=== PATIENT | male | born 1945 | race Caucasian/White ===

== ENCOUNTER 2018-07-24 11:37 | Emergency (ER) | payer MEDICARE, OTHER ==
[~2018-07-24] VITALS: Ht 175.3 cm; Wt 68.0 kg
[~2018-07-24 11:37] MED LIST: ALBU90OI61 INH; ALPR1 PO; Aspirin EC81 MG PO; BUDE6HFA INH; CYCL10 PO; IBUP800 PO; LISI5 PO; METPHE10 PO; Morphine Sulfat15 MG PO; Nitrostat0.4 MG SL; PARO10 PO; Percocet 10-321 EACH PO; SIMV40 PO
[2018-07-24 13:24] LABS: BASOPHILS ABSOLUTE AUTO 0.08 K/mm3 (0.00-0.23); BASOPHILS PERCENT AUTO 1 % (0-2); EOSINOPHILS ABSOLUTE AUTO 0.39 K/mm3 (0.00-0.68); EOSINOPHILS PERCENT AUTO 4 % (0-6); Hematocrit 39.5 % (37.0-53.0); Hemoglobin 12.4 g/dL (13.5-17.5); IMMATURE GRAN ABSOLUTE AUTO 0.02 K/mm3 (0.00-0.10); IMMATURE GRAN PERCENT AUTO 0 % (0-1); LYMPHOCYTES ABSOLUTE AUTO 1.25 K/mm3 (0.84-5.20); LYMPHOCYTES PERCENT AUTO 13 % (21-46); MONOCYTES ABSOLUTE AUTO 0.67 K/mm3 (0.16-1.47); MONOCYTES PERCENT AUTO 7 % (4-13); Mean Corpuscular HGB 31.2 pg (26.0-34.0); Mean Corpuscular HGB Conc 31.4 g/dL (31.5-36.5); Mean Corpuscular Volume 99 fL (80-100); Mean Platelet Volume 10.8 fL (9.1-12.4); NEUTROPHILS ABSOLUTE AUTO 6.89 K/mm3 (1.96-9.15); NEUTROPHILS PERCENT AUTO 74 % (41-73); Platelet Count 174 K/mm3 (150-400); RDW Coefficient Variation 13.1 % (11.7-14.2); RDW Standard Deviation 48.3 fL (35.1-46.3); Red Blood Cell Count 3.98 M/mm3 (4.30-5.90)
[2018-07-24 13:47] LABS: Alanine Aminotransfer (ALT/SGP 14 U/L (12-78); Albumin, Blood 3.6 g/dL (3.4-5.0); Alk Phos 61 U/L (50-136); Anion Gap 6 mmol/L (6-16); Aspartate Aminotrans (AST/SGOT 31 U/L (12-37); Bilirubin, Total 0.2 mg/dL (0.1-1.0); Blood Urea Nitrogen 18 mg/dL (8-24); Bun/Creatinine Ratio 18.7 (12.0-20.0); CO2, Blood 27 mmol/L (21-32); Calcium, Blood 8.9 mg/dL (8.5-10.1); Chloride, Blood 108 mmol/L (98-108); Creatinine, Blood 0.96 mg/dL (0.60-1.20); Globulin, Blood 3.6 g/dL (2.2-4.0); Glomerular Filtration Rate >60 (60-); Glucose, Blood 89 mg/dL (70-99); Potassium, Blood 4.2 mmol/L (3.5-5.5); Sodium, Blood 141 mmol/L (136-145); Total Protein, Blood 7.2 g/dL (6.4-8.2); Troponin I 0.047 ng/mL (0.000-0.040)
[2018-07-24] MEDS ORDERED: TORS10 (15:15)
[2018-07-24] MEDS ORDERED: SPIR25 PO (15:16)
[2018-07-24] MEDS ORDERED: GABA300 PO (15:17)
[2018-07-24 17:54] LABS: Source, Urine Clean Catch
[2018-07-24 18:22] LABS: Appearance, Urine Clear (Clear); Bilirubin, Urine Neg (Neg); Blood, Urine Neg (Neg); Color, Urine Yellow (P-Yellow); Glucose Qualitative, Urine Neg (Neg); Ketones, Urine Neg (Neg); Leukocyte Esterase, Urine Neg (Neg); Nitrite, Urine Neg (Neg); Protein, Urine Neg (Neg); Specific Gravity, Urine 1.005 (1.003-1.022); Urobilinogen, Urine NORM (Normal)
== END 2018-07-24 19:37 | disposition home or self-care (01) ==
LOC: ER 11:37
PROVIDERS: Emergency Medicine; Internal Medicine
DX: R53.1 Weakness (principal); R41.0 Disorientation, unspecified; I25.10 Atherosclerotic heart disease of native coronary artery without angina pectoris; E78.5 Hyperlipidemia, unspecified; I10 Essential (primary) hypertension; Z79.899 Other long term (current) drug therapy; Z87.891 Personal history of nicotine dependence; Z79.82 Long term (current) use of aspirin; Z79.01 Long term (current) use of anticoagulants
CPT/HCPCS: 36415; 70450; 71046; 80053; 81003; 83880; 84484; 85025; 93005; 93010; 99285-25

== ENCOUNTER 2018-10-22 15:36 | Emergency (ER) | payer MEDICARE, OTHER ==
[~2018-10-22] VITALS: Ht 172.7 cm; Wt 74.8 kg
[~2018-10-22 15:36] MED LIST changes: +GABA300 PO; +SPIR25 PO; +TORS10
[2018-10-22 17:11] LABS: BASOPHILS ABSOLUTE AUTO 0.05 K/mm3 (0.00-0.23); BASOPHILS PERCENT AUTO 1 % (0-2); EOSINOPHILS PERCENT AUTO 4 % (0-6); Hematocrit 33.1 % (37.0-53.0); Hemoglobin 10.5 g/dL (13.5-17.5); IMMATURE GRAN ABSOLUTE AUTO 0.02 K/mm3 (0.00-0.10); IMMATURE GRAN PERCENT AUTO 0 % (0-1); LYMPHOCYTES ABSOLUTE AUTO 1.23 K/mm3 (0.84-5.20); LYMPHOCYTES PERCENT AUTO 16 % (21-46); MONOCYTES ABSOLUTE AUTO 0.96 K/mm3 (0.16-1.47); MONOCYTES PERCENT AUTO 12 % (4-13); Mean Corpuscular HGB 30.6 pg (26.0-34.0); Mean Corpuscular HGB Conc 31.7 g/dL (31.5-36.5); Mean Corpuscular Volume 97 fL (80-100); Mean Platelet Volume 12.1 fL (9.1-12.4); NEUTROPHILS ABSOLUTE AUTO 5.21 K/mm3 (1.96-9.15); NEUTROPHILS PERCENT AUTO 67 % (41-73); Platelet Count 122 K/mm3 (150-400); RDW Coefficient Variation 13.5 % (11.7-14.2); RDW Standard Deviation 48.2 fL (35.1-46.3); Red Blood Cell Count 3.43 M/mm3 (4.30-5.90); White Blood Cell Count 7.77 K/mm3 (4.00-11.30)
[2018-10-22 17:26] LABS: Alanine Aminotransfer (ALT/SGP 33 U/L (12-78); Albumin, Blood 2.9 g/dL (3.4-5.0); Alk Phos 63 U/L (50-136); Anion Gap 5 mmol/L (6-16); Aspartate Aminotrans (AST/SGOT 77 U/L (12-37); Bilirubin, Total 0.4 mg/dL (0.1-1.0); Blood Urea Nitrogen 23 mg/dL (8-24); Bun/Creatinine Ratio 26.6 (12.0-20.0); CO2, Blood 30 mmol/L (21-32); CPK Creatine Kinase 354 U/L (39-308); Calcium, Blood 8.1 mg/dL (8.5-10.1); Chloride, Blood 105 mmol/L (98-108); Creatine Kinase MB 4.5 ng/mL (0.0-3.6); Creatine Kinase MB Index 1.3 (0.0-4.0); Creatinine, Blood 0.87 mg/dL (0.60-1.20); Globulin, Blood 2.9 g/dL (2.2-4.0); Glomerular Filtration Rate >60 (60-); Glucose, Blood 87 mg/dL (70-99); Potassium, Blood 3.6 mmol/L (3.5-5.5); Sodium, Blood 140 mmol/L (136-145); Total Protein, Blood 5.8 g/dL (6.4-8.2)
== END 2018-10-22 18:30 | disposition home or self-care (01) ==
LOC: ER 15:36
PROVIDERS: Physician Assistant
DX: S20.212A Contusion of left front wall of thorax, initial encounter (principal); E78.5 Hyperlipidemia, unspecified; M54.5 Low back pain; G89.29 Other chronic pain; Z87.891 Personal history of nicotine dependence; W18.30XA Fall on same level, unspecified, initial encounter
CPT/HCPCS: 36415; 71101; 80053; 82550; 82553; 85025; 96360; 99283-25; J7030

== ENCOUNTER 2018-11-19 14:03 | Observation (INO) | payer MEDICARE ==
[~2018-11-19] VITALS: Ht 175.3 cm; Wt 74.5 kg
[2018-11-19] MEDS ORDERED: TAMS.4ER PO (14:12)
[2018-11-19 14:52] LABS: Source, Urine Clean Catch
[2018-11-19 14:55] LABS: Appearance, Urine Clear (Clear); Bilirubin, Urine Neg (Neg); Blood, Urine 4+ (Neg); Color, Urine Yellow (P-Yellow); Glucose Qualitative, Urine Neg (Neg); Ketones, Urine 3+ (Neg); Leukocyte Esterase, Urine Neg (Neg); Nitrite, Urine Neg (Neg); Protein, Urine 2+ (Neg); Specific Gravity, Urine 1.015 (1.003-1.022); Urobilinogen, Urine NORM (Normal)
[2018-11-19 15:07] LABS: BASOPHILS ABSOLUTE AUTO 0.01 K/mm3 (0.00-0.23); BASOPHILS PERCENT AUTO 0 % (0-2); EOSINOPHILS PERCENT AUTO 0 % (0-6); Hematocrit 41.3 % (37.0-53.0); Hemoglobin 13.5 g/dL (13.5-17.5); IMMATURE GRAN ABSOLUTE AUTO 0.05 K/mm3 (0.00-0.10); IMMATURE GRAN PERCENT AUTO 0 % (0-1); LYMPHOCYTES ABSOLUTE AUTO 0.82 K/mm3 (0.84-5.20); LYMPHOCYTES PERCENT AUTO 7 % (21-46); MONOCYTES ABSOLUTE AUTO 0.95 K/mm3 (0.16-1.47); MONOCYTES PERCENT AUTO 8 % (4-13); Mean Corpuscular HGB 30.4 pg (26.0-34.0); Mean Corpuscular HGB Conc 32.7 g/dL (31.5-36.5); Mean Corpuscular Volume 93 fL (80-100); Mean Platelet Volume 12.5 fL (9.1-12.4); NEUTROPHILS ABSOLUTE AUTO 10.02 K/mm3 (1.96-9.15); NEUTROPHILS PERCENT AUTO 85 % (41-73); Platelet Count 173 K/mm3 (150-400); RDW Coefficient Variation 12.9 % (11.7-14.2); RDW Standard Deviation 44.6 fL (35.1-46.3); Red Blood Cell Count 4.44 M/mm3 (4.30-5.90); White Blood Cell Count 11.85 K/mm3 (4.00-11.30)
[2018-11-19 15:14] LABS: White Blood Cells, Urine 0-2 /hpf (0-5)
[2018-11-19 15:15] LABS: Bacteria Not Seen /hpf; Squamous Epithelial Cells Rare /hpf (Few)
[2018-11-19 15:29] LABS: Alanine Aminotransfer (ALT/SGP 15 U/L (12-78); Albumin, Blood 3.8 g/dL (3.4-5.0); Alk Phos 82 U/L (50-136); Anion Gap 11 mmol/L (6-16); Aspartate Aminotrans (AST/SGOT 54 U/L (12-37); Bilirubin, Total 1.2 mg/dL (0.1-1.0); Blood Urea Nitrogen 13 mg/dL (8-24); Bun/Creatinine Ratio 19.8 (12.0-20.0); CO2, Blood 25 mmol/L (21-32); Calcium, Blood 9.5 mg/dL (8.5-10.1); Chloride, Blood 99 mmol/L (98-108); Creatinine, Blood 0.66 mg/dL (0.60-1.20); Globulin, Blood 3.8 g/dL (2.2-4.0); Glomerular Filtration Rate >60 (60-); Glucose, Blood 108 mg/dL (70-99); Potassium, Blood 3.9 mmol/L (3.5-5.5); Sodium, Blood 135 mmol/L (136-145); Total Protein, Blood 7.6 g/dL (6.4-8.2)
[2018-11-19 15:41] LABS: U Amphetamine Screen Not Detected; U Barbituate Screen Not Detected; U Benzodiazapine Screen DETECTED; U Buprenorphine Screen Not Detected; U Cannabinoids Screen DETECTED; U Cocaine Screen Not Detected; U Methadone Screen Not Detected; U Methamphetamine Screen Not Detected; U Opiates Screen DETECTED; U Oxycodone Screen Not Detected; U Phencyclidine Screen Not Detected; U Propoxyphene Screen Not Detected
[2018-11-19 16:53] LABS: Creatine Kinase MB 30.9 ng/mL (0.0-3.6); Creatine Kinase MB Index 2.2 (0.0-4.0)
--- NOTE | 2018-11-19 18:35 | NUR ---
PT ADMITTED PT ADMITTED AT 1835. PT IN STABLE CONDITION. DENIES CHEST PAIN OR SOB. PT ORIENTED TO ROOM, GOWN CHANGED, AND BREIF APPLIED. PT STATES PAIN LEVEL OF 7/10 IN HIS BACK & SHOULDERS. WILL CONTINUE TO MONITOR UINTIL TURNOVER IS COMPLETE.
[2018-11-19 21:33] LABS: Troponin I 0.191 ng/mL (0.000-0.040)
--- NOTE | 2018-11-20 04:34 | NUR ---
PT ADMITTED. ALL HOME MEDS RECONCILED WITH PT. PT VERY WEAK, 2 PRSN ASSIST W/ FWW AND GAIT BELT. NO C/O PIN. PT HAS ROM R SHOULDER. RIGHT SIDE OF FACE SWOLLEN FROM FALL. COMFORT MEASURE IMPLEMENTED. ORTHOSTATIC VITAL TAKEN. FLU SHOT GIVEN. CALL LIGHT IN REACH, WILL USE APPROPIATELY.
[2018-11-20 09:25] LABS: BASOPHILS ABSOLUTE AUTO 0.04 K/mm3 (0.00-0.23); BASOPHILS PERCENT AUTO 1 % (0-2); EOSINOPHILS ABSOLUTE AUTO 0.02 K/mm3 (0.00-0.68); EOSINOPHILS PERCENT AUTO 0 % (0-6); Hematocrit 36.5 % (37.0-53.0); Hemoglobin 11.9 g/dL (13.5-17.5); IMMATURE GRAN ABSOLUTE AUTO 0.03 K/mm3 (0.00-0.10); IMMATURE GRAN PERCENT AUTO 0 % (0-1); LYMPHOCYTES ABSOLUTE AUTO 1.45 K/mm3 (0.84-5.20); LYMPHOCYTES PERCENT AUTO 17 % (21-46); MONOCYTES ABSOLUTE AUTO 0.94 K/mm3 (0.16-1.47); MONOCYTES PERCENT AUTO 11 % (4-13); Mean Corpuscular HGB 30.4 pg (26.0-34.0); Mean Corpuscular HGB Conc 32.6 g/dL (31.5-36.5); Mean Corpuscular Volume 93 fL (80-100); Mean Platelet Volume 12.4 fL (9.1-12.4); NEUTROPHILS ABSOLUTE AUTO 6.09 K/mm3 (1.96-9.15); NEUTROPHILS PERCENT AUTO 71 % (41-73); Platelet Count 142 K/mm3 (150-400); RDW Coefficient Variation 13.5 % (11.7-14.2); RDW Standard Deviation 46.3 fL (35.1-46.3); Red Blood Cell Count 3.92 M/mm3 (4.30-5.90); White Blood Cell Count 8.57 K/mm3 (4.00-11.30)
[2018-11-20 09:43] LABS: Albumin, Blood 3.2 g/dL (3.4-5.0); Anion Gap 9 mmol/L (6-16); Blood Urea Nitrogen 18 mg/dL (8-24); Bun/Creatinine Ratio 22.5 (12.0-20.0); CO2, Blood 26 mmol/L (21-32); Calcium, Blood 8.6 mg/dL (8.5-10.1); Chloride, Blood 105 mmol/L (98-108); Glomerular Filtration Rate >60 (60-); Glucose, Blood 131 mg/dL (70-99); Phosphorus, Blood 2.5 mg/dL (2.5-4.9); Potassium, Blood 3.3 mmol/L (3.5-5.5); Sodium, Blood 140 mmol/L (136-145)
--- NOTE | 2018-11-20 10:25 | NUR ---
Echocardiogram completed.
--- NOTE | 2018-11-20 12:18 | NUR ---
DR MOODY IN TO SEE PT THIS AM, ORDER CARDIAC CONSULT, CALLED TO DR HUBER. DR HUBER REVIEW PT'S RECORD 7 RESULT OF ECHO THIS AM, DISCUSS WITH PT, CONSENT SIGNED FOR ANGIOGRAM. HRT CTR RN UP TO TAKE PT OUT FOR PROCEDURE @ 8129. PT IS A/O X4, PLEASANT AFFECT. HE STATE CHR BACK PAIN, STATE TAKE MORPHINE IR 15MG @ HOME, ORDER RECIEVED FROM DR MOODY, GIVEN.
[2018-11-20 13:23] LABS: International Normalized Ratio 1.08; Prothrombin Time Results 11.4 Sec (9.7-11.5)
--- NOTE | 2018-11-20 16:58 | NUR ---
SHIFT SUMMARY 1400 PT RECEIVED FROM MEDICAL FLOOR VIA [facility]. VSS. ALERT AND ORIENTED. RIGHT GROIN SOFT, NO BLEED OR HEMATOMA, OPSITE DRSG CDI. RIGHT WRIST SOFT, NO BLEED OR HEMATOMA, TR BAND CDI, RELEASING AIR FROM TR BAND PER PROTOCOL. PT REMAINS ON BEDREST WITH ELEVATION OF HEAD OF BED PER ORDERS. RESTING QUIETLY N BED. INCONTINENT OF URINE. WILL CONTINUE TO MONITOR.
--- NOTE | 2018-11-20 18:13 | NUR ---
Jarad is well-known to me since the of his several years ago. He has life-long, devoted friends, but they do not live in the area. His LUIS, Olivia, tires to help Jarad as much as she can. Jarad admits "something" has to change with regard to his living situation. Physicians are trying to determine why he is so weak and prone to falls. Friends at bedside express concern and would like Jarad to live somewhere that he could have someone to help if needed, well-rounded meals, and emotional support. Jarad tends to isolate for months at a time. Jarad is open to consider change. Jarad has an Advanced Directive in chart that names his LUIS and friend as EMILY. His desire for no heroic measures is stated as well. I made a copy of this document and hand-carried it to Medical Records. I will attempt POLST conversation tomorrow. Jarad responds well to companionship, spiritual support, and conversation. I will remain available.
--- NOTE | 2018-11-20 18:30 | NUR ---
SUMMARY- Pt. has had no change in neuro status. Con't to raise head or open eyes but still no tracking. Sat in recliner for 2 1/2 hrs today and remained stable t/o activity. Family in today.
[2018-11-21 03:39] LABS: BASOPHILS ABSOLUTE AUTO 0.06 K/mm3 (0.00-0.23); BASOPHILS PERCENT AUTO 1 % (0-2); EOSINOPHILS ABSOLUTE AUTO 0.06 K/mm3 (0.00-0.68); EOSINOPHILS PERCENT AUTO 1 % (0-6); Hematocrit 37.1 % (37.0-53.0); Hemoglobin 11.6 g/dL (13.5-17.5); IMMATURE GRAN ABSOLUTE AUTO 0.01 K/mm3 (0.00-0.10); IMMATURE GRAN PERCENT AUTO 0 % (0-1); LYMPHOCYTES ABSOLUTE AUTO 1.52 K/mm3 (0.84-5.20); LYMPHOCYTES PERCENT AUTO 20 % (21-46); MONOCYTES PERCENT AUTO 12 % (4-13); Mean Corpuscular HGB Conc 31.3 g/dL (31.5-36.5); Mean Corpuscular Volume 96 fL (80-100); Mean Platelet Volume 12.5 fL (9.1-12.4); NEUTROPHILS ABSOLUTE AUTO 5.26 K/mm3 (1.96-9.15); NEUTROPHILS PERCENT AUTO 67 % (41-73); Platelet Count 118 K/mm3 (150-400); RDW Coefficient Variation 13.8 % (11.7-14.2); RDW Standard Deviation 48.5 fL (35.1-46.3); Red Blood Cell Count 3.87 M/mm3 (4.30-5.90); White Blood Cell Count 7.81 K/mm3 (4.00-11.30)
[2018-11-21 03:57] LABS: Anion Gap 8 mmol/L (6-16); Blood Urea Nitrogen 17 mg/dL (8-24); CO2, Blood 27 mmol/L (21-32); Chloride, Blood 110 mmol/L (98-108); Glomerular Filtration Rate >60 (60-); Glucose, Blood 92 mg/dL (70-99); Phosphorus, Blood 2.4 mg/dL (2.5-4.9); Potassium, Blood 3.9 mmol/L (3.5-5.5); Sodium, Blood 145 mmol/L (136-145)
--- NOTE | 2018-11-21 04:35 | NUR ---
ICU NOC SHIFT SUMMARY PATIENT ALERT AND ORIENTED X4 T/O SHIFT. PATIENTS RESPIRATION E/U AT REST. PATIENT DENIES ANY CHEST PAIN OR PRESSURE T/O SHIFT. VSS. PATIENT HAS NOTED KYPHOSIS AND CHRONIC BACK PAIN THAT HE TAKES NARCOTICS, BENZOS AND MARIJUANA FOR AT HOME. PATIENT AND FAMILY HAVE REPORTED THAT WHEN PATIENT TAKES MULTIPLE THINGS FOR PAIN THAT HE DOES BEMOVE DROWSY AND FALLS A BIT AT HOME. NOTED BRUISING SCATTERED OVER PATIENTS BODY. PATIENTS HR IS IN AFIB IN THE 60-70'S. L/S CLEAR TO DIM, PATIENT ON ROOM AIR. NO ACUTE CHANGES NOTED. PATIENTS PLTS DOWN TO 18,000. WILL CONTINUE TO MONITOR UNTIL REPORT IS GIVEN TO DAYSHIFT RN.
--- NOTE | 2018-11-21 06:26 | NUR ---
MD HUBER TO ROOM PROVIDER TO ROOM TO ASSESS PATIENT AND CHECK GROIN AND RADIAL SITES. EKG COMPLETED THIS AM AT APPROX 0500 AND SHOWN TO MD. NOTIFIED MD HUBER THAT PATIENT IS CURRENTLY IN AFLUTTER/AFIB. PROVIDER VERBALIZED THAT THIS HAD HAPPENED DURING PROCEDURE - NO NEW ORDERS GIVEN. PATIENT MADE MED W/ TELE STATUS.
--- NOTE | 2018-11-21 08:05 | NUR ---
PT STABLE FOR TRANSFER TO MEDICAL FLOOR. REPORT CALLED TO ANASTASIYA SHEA ON MEDICAL FLOOR. PT TRANSFERED VIA BED TO MEDICAL FLOOR WITH BELONGINGS.
--- NOTE | 2018-11-21 16:54 | NUR ---
SHIFT SUMMARY PT XFER'D FROM ICU THIS AM, NO ACUTE CHANGES SINCE ASSUMING CARE, MEDICATED 1X FOR PAIN, NO OTHER COMPLAINTS OF ANY KIND. PT BEDRESTING AT THIS TIME, WILL CONT TO MONTIOR UNTIL REPORT GIVEN TO JESÚS SHEA.
--- NOTE | 2018-11-21 18:33 | NUR ---
Jarad and I spoke at length about his fears and concerns. He recognizes life-style changes, but does not have any idea how to make this happen. He responded well to day camp counselor and comfort. I will remain available.
--- NOTE | 2018-11-22 04:44 | NUR ---
*SHIFT SUMMARY* PATIENT IS ALERT AND ORIENTED. PATIENT REQUESTED TO WALK THE HALLS LAST NIGHT. AMBULATED WITH A WALKER, GAIT WAS STEADY, NO SHORTNESS OF BREATH OR DIZZINESS NOTED. PATIENT DID HAVE PAIN THROUGHOUT THE NIGHT AND WAS MEDICATED ORDERED SEE EMAR. PATIENT DID NOT SLEEP MUCH THROUGHOUT THE NIGHT. CALL LIGHT IN REACH, BED LOWERED AND LOCKED.
--- NOTE | 2018-11-22 16:22 | NUR ---
SHIFT SUMMARY PT HAS HAD NO ACUTE CHNAGES THIS SHIFT, MEDICATED 1X FOR PAIN, NO OTHER COMPLAINTS OF ANY KIND. PT REQUESTS TO WALK AROUND THE UNIT REGULARLY DURING SHIFT AND WALKS W/STAFF. PT IS UP IN CHAIR IN ROOM AT THIS TIME, WILL CONT TO MONITOR UNTIL REPORT GIVEN TO NOC RN.
--- NOTE | 2018-11-22 17:06 | NUR ---
Jarad appears brighter and has more energy today. He is hopeful "things will fall into place" with regard to home and lifestyle changes. Advised he needed to follow up with licensed master social worker, and cautioned him not to fall back into isolation. We have a good rapport and I will remain available.
--- NOTE | 2018-11-22 20:27 | NUR ---
DR Perdue called with PT request for trazodone at hs for insomnia. he rx trazodone 25 mg po q hs prn insomnia.
--- NOTE | 2018-11-23 05:07 | NUR ---
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 HE HAS CHRONIC PAIN BUT IT IS WELL CONTROLLED ON PRN RX. PT REQUESTED TRAZODONE FOR INSOMNIA AND SLEPT WELL. ON TELE MONITOR AFIB AFLUTTER RATE AVERAGE 84. LIVES ALONE, SW REFERRAL FOR INCREASED ASSISTANCE NEEDED ON DISCHARGE. DENIES ACUTE DISTRESS.
[2018-11-23 05:47] LABS: BASOPHILS ABSOLUTE AUTO 0.07 K/mm3 (0.00-0.23); BASOPHILS PERCENT AUTO 1 % (0-2); EOSINOPHILS ABSOLUTE AUTO 0.31 K/mm3 (0.00-0.68); EOSINOPHILS PERCENT AUTO 4 % (0-6); Hematocrit 38.2 % (37.0-53.0); Hemoglobin 12.1 g/dL (13.5-17.5); IMMATURE GRAN ABSOLUTE AUTO 0.01 K/mm3 (0.00-0.10); IMMATURE GRAN PERCENT AUTO 0 % (0-1); LYMPHOCYTES ABSOLUTE AUTO 1.68 K/mm3 (0.84-5.20); LYMPHOCYTES PERCENT AUTO 21 % (21-46); MONOCYTES ABSOLUTE AUTO 0.83 K/mm3 (0.16-1.47); MONOCYTES PERCENT AUTO 10 % (4-13); Mean Corpuscular HGB 30.6 pg (26.0-34.0); Mean Corpuscular HGB Conc 31.7 g/dL (31.5-36.5); Mean Corpuscular Volume 97 fL (80-100); NEUTROPHILS ABSOLUTE AUTO 5.31 K/mm3 (1.96-9.15); NEUTROPHILS PERCENT AUTO 65 % (41-73); Platelet Count 116 K/mm3 (150-400); RDW Coefficient Variation 13.3 % (11.7-14.2); RDW Standard Deviation 47.9 fL (35.1-46.3); Red Blood Cell Count 3.96 M/mm3 (4.30-5.90); White Blood Cell Count 8.21 K/mm3 (4.00-11.30)
[2018-11-23 06:20] LABS: Anion Gap 5 mmol/L (6-16); Blood Urea Nitrogen 17 mg/dL (8-24); Bun/Creatinine Ratio 23.4 (12.0-20.0); CO2, Blood 26 mmol/L (21-32); Calcium, Blood 8.7 mg/dL (8.5-10.1); Chloride, Blood 112 mmol/L (98-108); Creatinine, Blood 0.73 mg/dL (0.60-1.20); Glomerular Filtration Rate >60 (60-); Glucose, Blood 99 mg/dL (70-99); Potassium, Blood 4.1 mmol/L (3.5-5.5); Sodium, Blood 143 mmol/L (136-145)
--- NOTE | 2018-11-23 18:29 | NUR ---
PT. SITTING ON EDGE OF BED. HAVE USED THE BED AND CHAIR ALARMS TODAY PT. DOES NOT CALL BEFORE GETTING UP. PT. IS PLEASANT AND COOPERATIVE, JUST APPEARS TO FORGET EASILY. NO NOTEABLE CHANGES THIS SHIFT.
--- NOTE | 2018-11-23 18:41 | NUR ---
Jarad says he is mostly bored, but is worried about going home and falling again. Advised him to express his concerns to PT and physician. We chatted briefly, I found him some earplugs and a book at his request. He appears a bit stronger. Radioisotope Production Operator services will remain available.
--- NOTE | 2018-11-24 05:13 | NUR ---
pt continues calm and cooperative with ability to ambulate 400 feet with fww in hallway. when offered pain med pt does agree for back pain and spasm had flexeril and oxycodone with helpful effect. he is on room air off tel and denies acute distress but does state he feels weak and deconditioned. PT lives alone and has his Wifes family in town. he is asking for some help at home. has sw referral for discharge planning.
--- NOTE | 2018-11-24 12:02 | NUR ---
Jarad was alert, warm, and conversant. He responded favorably to social attention, humor and encouragement. We dialogued extensively about our shared passion for fingerstyle acoustic guitar music, classic rock and the great metaphysical enigmas of the universe. Jarad is bright, articulate, and full of curiosity. His span of knowledge in the categories mentioned is impressive and fascinating. I provided active and supportive listening, reciprocated in kind, and offered words of comfort and inspiration. Jarad expressed enjoyment and appreciation for the visit.
--- NOTE | 2018-11-24 12:42 | NUR ---
NOTIFIED DR. WOODS PT C/O NUMBNESS IN R PINKY AND R PINKY IS WARM WHILE OTHER FINGERS ARE COLD TO THE TOUCH. DR. WOODS SAID SHE WILL COME UP TO EXAMINE HIM. NO OTHER NEW ORDERS AT THIS TIME.
--- NOTE | 2018-11-24 18:34 | NUR ---
SHIFT SUMMARY- PT C/O BACK/SHOULDER AND R HAND PAIN. MEDS GIVEN PER EMAR. PT DENIES SOB. RESP E/U ON RA. PT DENIES N/V. PHYSICAL THERAPY CLEARED PT TODAY. FAMILY IN TO VISIT PT TODAY. NO OTHER SIGNIFICANT CHANGES THIS SHIFT.
--- NOTE | 2018-11-25 05:45 | NUR ---
SHIFT SUMMARY PT SLEPT WELL T/O NIGHT. NO ACUTE CHANGES. AOX4. DENIES N/V OR SOB. REPORTS NUMBNESS IN R PINKY IS RAIDIATING DOWN HAND TO PALM & STATES IT IS PAINFUL BUT DENIES NEED FOR MEDICATION. PT IND IN ROOM W/WALKER. CALL LIGHT IN REACH & BED IN LOWEST POSITION
--- NOTE | 2018-11-25 17:49 | NUR ---
SHIFT SUMMARY PT AXO, PLEASANT AND COOPERATIVE WITH CARE THOUGH PT IS CONCERNED ABOUT HIS HAND AND ASSOCIATED PAIN AND HEAT IN THAT HAND. DR WOODS AWARE. ICE PACK APPLIED TO AREA. PT REPORTS THAT THE COOL "CHANGES THE PAIN BUT DOES NOT MAKE IT BETTER."PT MEDICATED PER EMAR FOR PAIN. PT UP WITH WALKER AND AMBULATED HALLWAYS MULTIPLE TIMES THIS SHIFT. PT STATES THAT HE FEELS SAFE, DENIES DIZZINESS AND WEAKNESS. BED IN LOW POSITION, CALL LIGHT WITHIN REACH. NO ACUTE CHANGES THIS SHIFT.
--- NOTE | 2018-11-26 04:34 | NUR ---
SHIFT SUMMARY NO ACUTE CHANGES THIS SHIFT. PT SLEPT WELL T/O NIGHT. AOX4. VSS. DENIES SOB OR N/V. REPORTS 8/10 PAIN IN R HAND/WRIST, STATES IT IS "NUMB & FEELS HOT TO TOUCH." MEDICATED W/PERCOCET 1X PER ORDERS FOR PAIN & ICE PACK APPLIED TO R. HAND. STATES PAIN MEDS "HELP A LITTLE W/THE PAIN," & WHEN REASSED STATES PAIN IS DOWN TO A 6/10 IN R HAND. PT UP MULTIPLE TIMES AMBULATING VELOZ W/WALKER, DENIES DIZZINESS. CALL LIGHT IS IN REACH & I WILL CONT. TO MONITOR PT UNTIL DAY SHIFT RN ASSUMES CARE.
--- NOTE | 2018-11-26 18:33 | NUR ---
SHIFT SUMMARY PT AXO, PLEASANT AND COOPERATIVE WITH CARE. NO ACUTE CHANGES THIS SHIFT. DENIES DIZZINESS WITH AMBULATION. NO SYNCOPAL EPISODES THIS SHIFT. VSS. BED IN LOW POSITION, CALL LIGHT WITHIN REACH. PT MEDICATED FOR PAIN PER EMAR.
--- NOTE | 2018-11-27 07:35 | NUR ---
SHIFT SUMMARY PT HAS BEEN SLEEPING SOUNDLY SINCE TRAZADONE WAS GIVEN @0014. AOX4. DENIES SOB OR N/V. REPORTS 05/02 PAIN & NUMBNESS IN R.HAND MEDICATED 1X W/PERCOCET PER ORDERS. NO OTHER ACUTE CHANGES. PT INDEPENDENTLY AMBULATING W/WALKER IN ROOM. CALL LIGHT IN REACH & BED IN LOWEST POSITION.
--- NOTE | 2018-11-27 19:28 | NUR ---
SHIFT SUMMARY: NO ACUTE CHANGES TO REPORT THIS SHIFT. PT A&O; CALM AND COOPERATIVE WITH CARE. MEDICATED FOR PAIN EPR EMAR. PT USES HOME WALKER IN ROOM. EXPECTED DISCHARGE TO [facility]. REPORT GIVEN TO ONCOMING RN.
[2018-11-28 05:32] LABS: BASOPHILS ABSOLUTE AUTO 0.08 K/mm3 (0.00-0.23); BASOPHILS PERCENT AUTO 1 % (0-2); EOSINOPHILS ABSOLUTE AUTO 0.24 K/mm3 (0.00-0.68); EOSINOPHILS PERCENT AUTO 4 % (0-6); Hematocrit 36.5 % (37.0-53.0); IMMATURE GRAN ABSOLUTE AUTO 0.02 K/mm3 (0.00-0.10); IMMATURE GRAN PERCENT AUTO 0 % (0-1); LYMPHOCYTES ABSOLUTE AUTO 1.83 K/mm3 (0.84-5.20); LYMPHOCYTES PERCENT AUTO 30 % (21-46); MONOCYTES PERCENT AUTO 12 % (4-13); Mean Corpuscular HGB 30.1 pg (26.0-34.0); Mean Corpuscular HGB Conc 30.1 g/dL (31.5-36.5); Mean Platelet Volume 12.9 fL (9.1-12.4); NEUTROPHILS ABSOLUTE AUTO 3.22 K/mm3 (1.96-9.15); NEUTROPHILS PERCENT AUTO 53 % (41-73); Platelet Count 140 K/mm3 (150-400); RDW Coefficient Variation 13.4 % (11.7-14.2); RDW Standard Deviation 49.8 fL (35.1-46.3); Red Blood Cell Count 3.65 M/mm3 (4.30-5.90); White Blood Cell Count 6.09 K/mm3 (4.00-11.30)
[2018-11-28 05:33] LABS: Mean Corpuscular Volume 100 fL (80-100)
[2018-11-28 05:44] LABS: Percent Saturation 20.5 % (20.0-50.0)
[2018-11-28 06:02] LABS: Alanine Aminotransfer (ALT/SGP 15 U/L (12-78); Albumin, Blood 3.2 g/dL (3.4-5.0); Alk Phos 58 U/L (50-136); Anion Gap 6 mmol/L (6-16); Aspartate Aminotrans (AST/SGOT 20 U/L (12-37); Bilirubin, Total 0.4 mg/dL (0.1-1.0); Blood Urea Nitrogen 22 mg/dL (8-24); Bun/Creatinine Ratio 20.8 (12.0-20.0); CO2, Blood 28 mmol/L (21-32); Calcium, Blood 8.4 mg/dL (8.5-10.1); Chloride, Blood 107 mmol/L (98-108); Creatinine, Blood 1.06 mg/dL (0.60-1.20); Globulin, Blood 3.2 g/dL (2.2-4.0); Glomerular Filtration Rate >60 (60-); Glucose, Blood 86 mg/dL (70-99); Magnesium, Blood 2.4 mg/dL (1.6-2.4); Potassium, Blood 4.9 mmol/L (3.5-5.5); Sodium, Blood 141 mmol/L (136-145); Total Protein, Blood 6.4 g/dL (6.4-8.2)
--- NOTE | 2018-11-28 06:46 | NUR ---
11/28/18 0630 VITALS AND LABWORK STABLE. SLEPT ON AND OFF MEDICATED PER DEC.
--- NOTE | 2018-11-28 12:59 | NUR ---
Jarad was relaxing and appeared comfortable and pleasant. He responded favorably to social attention, acoustic guitar music and humor. Jarad enjoys listening to, and playing music. I created an opportunity for both. He engaged well and showed clear signs of interest and enjoyment.
--- NOTE | 2018-11-28 16:17 | NUR ---
This student nurse was given permission by the patient to access his medical records.
--- NOTE | 2018-11-28 19:18 | NUR ---
SHIFT SUMMARY: NO ACUTE CHANGES TO REPORT THIS SHIFT. PT A&O; IRRITABLE; COOPERATIVE WITH CARE. MEDICATED FOR PAIN PER EMAR. EXPECTED DISCHARGE TO HOME/[facility] 11/29. REPORT GIVEN TO ONCOMING RN.
[2018-11-29 04:45] LABS: BASOPHILS ABSOLUTE AUTO 0.07 K/mm3 (0.00-0.23); BASOPHILS PERCENT AUTO 1 % (0-2); EOSINOPHILS ABSOLUTE AUTO 0.25 K/mm3 (0.00-0.68); EOSINOPHILS PERCENT AUTO 4 % (0-6); Hematocrit 33.6 % (37.0-53.0); Hemoglobin 10.3 g/dL (13.5-17.5); IMMATURE GRAN ABSOLUTE AUTO 0.01 K/mm3 (0.00-0.10); IMMATURE GRAN PERCENT AUTO 0 % (0-1); LYMPHOCYTES ABSOLUTE AUTO 1.56 K/mm3 (0.84-5.20); LYMPHOCYTES PERCENT AUTO 26 % (21-46); MONOCYTES ABSOLUTE AUTO 0.68 K/mm3 (0.16-1.47); MONOCYTES PERCENT AUTO 11 % (4-13); Mean Corpuscular HGB 30.5 pg (26.0-34.0); Mean Corpuscular HGB Conc 30.7 g/dL (31.5-36.5); Mean Corpuscular Volume 99 fL (80-100); Mean Platelet Volume 12.6 fL (9.1-12.4); NEUTROPHILS ABSOLUTE AUTO 3.52 K/mm3 (1.96-9.15); NEUTROPHILS PERCENT AUTO 58 % (41-73); Platelet Count 143 K/mm3 (150-400); RDW Coefficient Variation 13.5 % (11.7-14.2); RDW Standard Deviation 49.2 fL (35.1-46.3); Red Blood Cell Count 3.38 M/mm3 (4.30-5.90); White Blood Cell Count 6.09 K/mm3 (4.00-11.30)
[2018-11-29 05:03] LABS: Alanine Aminotransfer (ALT/SGP 12 U/L (12-78); Albumin, Blood 3.1 g/dL (3.4-5.0); Alk Phos 58 U/L (50-136); Anion Gap 6 mmol/L (6-16); Aspartate Aminotrans (AST/SGOT 19 U/L (12-37); Bilirubin, Total 0.3 mg/dL (0.1-1.0); Blood Urea Nitrogen 28 mg/dL (8-24); Bun/Creatinine Ratio 25.7 (12.0-20.0); CO2, Blood 29 mmol/L (21-32); Calcium, Blood 8.5 mg/dL (8.5-10.1); Chloride, Blood 108 mmol/L (98-108); Creatinine, Blood 1.09 mg/dL (0.60-1.20); Globulin, Blood 3.2 g/dL (2.2-4.0); Glomerular Filtration Rate >60 (60-); Glucose, Blood 91 mg/dL (70-99); Potassium, Blood 4.4 mmol/L (3.5-5.5); Sodium, Blood 143 mmol/L (136-145); Total Protein, Blood 6.3 g/dL (6.4-8.2)
--- NOTE | 2018-11-29 06:31 | NUR ---
11/29/18 0630 BETTER NIGHT. PT MORE CHEERFUL AND HOPES TO BE DISCHARGED TODAY. ORAL INTAKE GOOD. MEDICATED WITH PAIN MEDS FOR RT. HAND BACK DISCOMFORT EARLIER IN SHIFT. UP WITH WALKER IN ROOM AND HALLS.
[2018-11-29] MEDS ORDERED: ASPI81CH PO (12:06)
--- NOTE | 2018-11-29 15:00 | NUR ---
pt discharged THE PT VERBALIZED UNDERSTANDING OF THE DC INSTRUCTIONS, PERSCRIPTION HARD COPIES PLACED IN THE PTS FOLDER AND GIVEN TO THE PT, OTHER PERSCRIPTIONS FAXED TO [facility], THE PT APPEARED TO BE BREATHING EASILY ON RA AT THE TIME OF DC, PT WAS TRANSFERED VIA WHEELCHAIR ACCOMPANIED BY THE SKIP MINER BLASTING AND A FRIEND
== END 2018-11-29 13:20 | disposition home or self-care (01) ==
LOC: ER 14:03 → ICUE 14:04 → MEDS 14:04 → PCU 11-20 13:23 → ICUE 11-20 13:32 → MEDS 11-21 08:17
PROVIDERS: Emergency Medicine; Internal Medicine; Internal Medicine Cardiovascular Disease; ADMIT Hospitalist
DX: R55 Syncope and collapse (principal); T79.6XXA Traumatic ischemia of muscle, initial encounter; I11.0 Hypertensive heart disease with heart failure; I50.32 Chronic diastolic (congestive) heart failure; F41.9 Anxiety disorder, unspecified; I25.10 Atherosclerotic heart disease of native coronary artery without angina pectoris; I65.23 Occlusion and stenosis of bilateral carotid arteries; I48.0 Paroxysmal atrial fibrillation; E78.5 Hyperlipidemia, unspecified; F90.9 Attention-deficit hyperactivity disorder, unspecified type; M54.9 Dorsalgia, unspecified; G89.29 Other chronic pain; R42 Dizziness and giddiness; R26.9 Unspecified abnormalities of gait and mobility; R29.6 Repeated falls; F17.210 Nicotine dependence, cigarettes, uncomplicated; Z79.899 Other long term (current) drug therapy; W18.30XA Fall on same level, unspecified, initial encounter; Z23 Encounter for immunization
CPT/HCPCS: 36415; 70450; 70551; 71046; 72125; 73030; 73070; 73120; 80048; 80053; 80069; 81001; 82024; 82533; 82550; 82553; 82728; 83540; 83550; 83735; 84443; 84484; 85025; 85610; 85651; 86850; 86900; 86901; 90686; 93005; 93010; 93306; 93458; 93880; 96360; 96361; 96372; 97110; 97116; 97162; 97530; 99152; 99153; 99285-25; C1769; C1894; G0008; G0378; G0480; J0360; J0690; J1644; J1650; J2250; J3010; J7030; Q9967

== ENCOUNTER 2018-12-29 18:06 | Emergency (ER) | payer MEDICARE, OTHER ==
[~2018-12-29] VITALS: Ht 177.8 cm; Wt 82.5 kg
[~2018-12-29 18:06] MED LIST changes: +ASPI81CH PO; +TAMS.4ER PO
[2018-12-29 19:23] LABS: BASOPHILS ABSOLUTE AUTO 0.05 K/mm3 (0.00-0.23); BASOPHILS PERCENT AUTO 1 % (0-2); EOSINOPHILS ABSOLUTE AUTO 0.22 K/mm3 (0.00-0.68); EOSINOPHILS PERCENT AUTO 3 % (0-6); Hematocrit 33.5 % (37.0-53.0); Hemoglobin 10.1 g/dL (13.5-17.5); IMMATURE GRAN ABSOLUTE AUTO 0.03 K/mm3 (0.00-0.10); IMMATURE GRAN PERCENT AUTO 0 % (0-1); LYMPHOCYTES ABSOLUTE AUTO 1.34 K/mm3 (0.84-5.20); LYMPHOCYTES PERCENT AUTO 19 % (21-46); MONOCYTES ABSOLUTE AUTO 0.72 K/mm3 (0.16-1.47); MONOCYTES PERCENT AUTO 10 % (4-13); Mean Corpuscular HGB 30.2 pg (26.0-34.0); Mean Corpuscular HGB Conc 30.1 g/dL (31.5-36.5); Mean Corpuscular Volume 100 fL (80-100); Mean Platelet Volume 10.7 fL (9.1-12.4); NEUTROPHILS ABSOLUTE AUTO 4.73 K/mm3 (1.96-9.15); NEUTROPHILS PERCENT AUTO 67 % (41-73); Platelet Count 195 K/mm3 (150-400); RDW Coefficient Variation 13.4 % (11.7-14.2); RDW Standard Deviation 49.8 fL (35.1-46.3); Red Blood Cell Count 3.34 M/mm3 (4.30-5.90); White Blood Cell Count 7.09 K/mm3 (4.00-11.30)
[2018-12-29 20:01] LABS: Alanine Aminotransfer (ALT/SGP 18 U/L (12-78); Albumin, Blood 3.1 g/dL (3.4-5.0); Albumin/Globulin Ratio 0.9 (0.8-1.8); Alk Phos 74 U/L (50-136); Anion Gap 3 mmol/L (6-16); Aspartate Aminotrans (AST/SGOT 23 U/L (12-37); Bilirubin, Total 0.4 mg/dL (0.1-1.0); Blood Urea Nitrogen 15 mg/dL (8-24); Bun/Creatinine Ratio 17.2 (12.0-20.0); CO2, Blood 30 mmol/L (21-32); Calcium, Blood 8.3 mg/dL (8.5-10.1); Chloride, Blood 104 mmol/L (98-108); Creatinine, Blood 0.87 mg/dL (0.60-1.20); Globulin, Blood 3.4 g/dL (2.2-4.0); Glomerular Filtration Rate >60 (60-); Glucose, Blood 93 mg/dL (70-99); Potassium, Blood 4.1 mmol/L (3.5-5.5); Sodium, Blood 137 mmol/L (136-145); Total Protein, Blood 6.5 g/dL (6.4-8.2); Troponin I 0.044 ng/mL (0.000-0.040)
[2018-12-29] MEDS ORDERED: TRAZ50 PO (22:31)
[2018-12-29] MEDS ORDERED: BUDE6HFA INH (22:31)
[2018-12-29] MEDS ORDERED: Doxycycline Hy100 MG PO (23:29)
== END 2018-12-30 00:02 | disposition home or self-care (01) ==
LOC: ER 18:06
PROVIDERS: Physician Assistant
DX: J44.0 Chronic obstructive pulmonary disease with (acute) lower respiratory infection (principal); J18.9 Pneumonia, unspecified organism; R77.8 Other specified abnormalities of plasma proteins; R93.89 Abnormal findings on diagnostic imaging of other specified body structures; Z99.89 Dependence on other enabling machines and devices; Z79.899 Other long term (current) drug therapy; Z79.82 Long term (current) use of aspirin; Z87.891 Personal history of nicotine dependence
CPT/HCPCS: 36415; 71046; 80053; 83880; 84484; 85025; 93005; 93010; 99284-25

== ENCOUNTER 2019-05-04 15:30 | Emergency (ER) | payer MEDICARE, OTHER ==
[~2019-05-04] VITALS: Ht 177.8 cm; Wt 83.9 kg
[~2019-05-04 15:30] MED LIST changes: +Doxycycline Hy100 MG PO; +TRAZ50 PO
[2019-05-04 15:59] LABS: BASOPHILS ABSOLUTE AUTO 0.09 K/mm3 (0.00-0.23); BASOPHILS PERCENT AUTO 1 % (0-2); EOSINOPHILS ABSOLUTE AUTO 0.37 K/mm3 (0.00-0.68); EOSINOPHILS PERCENT AUTO 4 % (0-6); Hematocrit 36.9 % (37.0-53.0); Hemoglobin 11.7 g/dL (13.5-17.5); IMMATURE GRAN ABSOLUTE AUTO 0.03 K/mm3 (0.00-0.10); IMMATURE GRAN PERCENT AUTO 0 % (0-1); LYMPHOCYTES ABSOLUTE AUTO 1.68 K/mm3 (0.84-5.20); LYMPHOCYTES PERCENT AUTO 18 % (21-46); MONOCYTES ABSOLUTE AUTO 1.15 K/mm3 (0.16-1.47); MONOCYTES PERCENT AUTO 13 % (4-13); Mean Corpuscular HGB 29.2 pg (26.0-34.0); Mean Corpuscular HGB Conc 31.7 g/dL (31.5-36.5); Mean Corpuscular Volume 92 fL (80-100); Mean Platelet Volume 11.1 fL (9.1-12.4); NEUTROPHILS ABSOLUTE AUTO 5.81 K/mm3 (1.96-9.15); NEUTROPHILS PERCENT AUTO 64 % (41-73); Platelet Count 198 K/mm3 (150-400); RDW Coefficient Variation 15.2 % (11.7-14.2); RDW Standard Deviation 51.5 fL (35.1-46.3); Red Blood Cell Count 4.01 M/mm3 (4.30-5.90); White Blood Cell Count 9.13 K/mm3 (4.00-11.30)
[2019-05-04 16:20] LABS: Albumin, Blood 3.6 g/dL (3.4-5.0); Albumin/Globulin Ratio 0.9 (0.8-1.8); Bilirubin, Total 0.5 mg/dL (0.1-1.0); Bun/Creatinine Ratio 25.7 (12.0-20.0); Creatinine, Blood 1.4 mg/dL (0.60-1.20); Potassium, Blood 4.3 mmol/L (3.5-5.5); Total Protein, Blood 7.6 g/dL (6.4-8.2); Troponin I 0.037 ng/mL (0.000-0.040)
[2019-05-04] MEDS ORDERED: Gabapentin600 MG PO (18:52)
[2019-05-04] MEDS ORDERED: MYRBETRIQ25 MG PO (18:52)
[2019-05-04] MEDS ORDERED: BUPROPION XL150 MG PO (18:53)
[2019-05-04] MEDS ORDERED: FURO40 PO (18:53)
[2019-05-04] MEDS ORDERED: POTCHL10ER (18:53)
== END 2019-05-04 19:07 | disposition home or self-care (01) ==
LOC: ER 15:30
PROVIDERS: Physician Assistant
DX: R60.0 Localized edema (principal); Z79.899 Other long term (current) drug therapy; Z79.82 Long term (current) use of aspirin; I10 Essential (primary) hypertension; Z87.891 Personal history of nicotine dependence
CPT/HCPCS: 36415; 71046; 80053; 83880; 84484; 85025; 93005; 93010; 99284-25

== ENCOUNTER → 2019-10-11 | Outpatient (CLI) | payer MEDICARE, OTHER ==
[~2019-10-11] MED LIST changes: +BUPROPION XL150 MG PO; +FURO40 PO; +Gabapentin600 MG PO; +MYRBETRIQ25 MG PO; +POTCHL10ER
[2019-10-15 13:07] LABS: M-SPIKE, % Not Observed % (Not Observed)
== END | disposition home or self-care (01) ==
LOC: LAB SHORT 06:59 → LAB 06:59 → LAB FUT 10-08 14:00
PROVIDERS: Internal Medicine
DX: R89.9 Unspecified abnormal finding in specimens from other organs, systems and tissues (principal)
CPT/HCPCS: 81050; 84156; 84166

== ENCOUNTER → 2019-12-06 | Outpatient (CLI) | payer MEDICARE, OTHER | END | disposition home or self-care (01) | LOC: LAB SHORT 11:30 → LAB 11:30 | DX: J44.1 Chronic obstructive pulmonary disease with (acute) exacerbation (principal) | CPT/HCPCS: 87070; 87205 ==

== ENCOUNTER 2019-12-20 07:55 | Inpatient (IN) | payer MEDICARE, OTHER ==
[~2019-12-20] VITALS: Ht 175.3 cm; Wt 106.4 kg
[~2019-12-20 07:55] MED LIST changes: -ASPI81CH PO; -FURO40 PO; -Gabapentin600 MG PO; -MYRBETRIQ25 MG PO; -Morphine Sulfat15 MG PO; -POTCHL10ER; -SIMV40 PO
[2019-12-20 08:37] LABS: BASOPHILS ABSOLUTE AUTO 0.05 K/mm3 (0.00-0.23); BASOPHILS PERCENT AUTO 0 % (0-2); EOSINOPHILS ABSOLUTE AUTO 0.39 K/mm3 (0.00-0.68); EOSINOPHILS PERCENT AUTO 3 % (0-6); Hematocrit 39.2 % (37.0-53.0); Hemoglobin 12.1 g/dL (13.5-17.5); IMMATURE GRAN ABSOLUTE AUTO 0.06 K/mm3 (0.00-0.10); IMMATURE GRAN PERCENT AUTO 1 % (0-1); LYMPHOCYTES ABSOLUTE AUTO 1.44 K/mm3 (0.84-5.20); LYMPHOCYTES PERCENT AUTO 11 % (21-46); MONOCYTES ABSOLUTE AUTO 1.21 K/mm3 (0.16-1.47); MONOCYTES PERCENT AUTO 9 % (4-13); Mean Corpuscular HGB 29.7 pg (26.0-34.0); Mean Corpuscular HGB Conc 30.9 g/dL (31.5-36.5); Mean Corpuscular Volume 96 fL (80-100); Mean Platelet Volume 11.4 fL (9.1-12.4); NEUTROPHILS ABSOLUTE AUTO 9.93 K/mm3 (1.96-9.15); NEUTROPHILS PERCENT AUTO 76 % (41-73); Platelet Count 147 K/mm3 (150-400); RDW Coefficient Variation 13.8 % (11.7-14.2); RDW Standard Deviation 48.8 fL (35.1-46.3); Red Blood Cell Count 4.07 M/mm3 (4.30-5.90); White Blood Cell Count 13.08 K/mm3 (4.00-11.30)
[2019-12-20 09:00] LABS: Alanine Aminotransfer (ALT/SGP 14 U/L (12-78); Albumin, Blood 3.2 g/dL (3.4-5.0); Albumin/Globulin Ratio 0.9 (0.8-1.8); Anion Gap 4 mmol/L (6-16); Aspartate Aminotrans (AST/SGOT 25 U/L (12-37); Bilirubin, Total 0.5 mg/dL (0.1-1.0); Blood Urea Nitrogen 23 mg/dL (8-24); Bun/Creatinine Ratio 21.3 (12.0-20.0); CO2, Blood 31 mmol/L (21-32); Calcium, Blood 8.7 mg/dL (8.5-10.1); Chloride, Blood 104 mmol/L (98-108); Creatinine, Blood 1.08 mg/dL (0.60-1.20); Globulin, Blood 3.6 g/dL (2.2-4.0); Glomerular Filtration Rate >60 (60-); Glucose, Blood 98 mg/dL (70-99); Potassium, Blood 3.9 mmol/L (3.5-5.5); Sodium, Blood 139 mmol/L (136-145); Total Protein, Blood 6.8 g/dL (6.4-8.2)
[2019-12-20 09:02] LABS: Alk Phos 76 U/L (50-136); Troponin I 0.075 ng/mL (0.000-0.040)
[2019-12-20 11:59] LABS: Source, Urine Clean Catch
[2019-12-20] MEDS ORDERED: Budesonide0.5 MG/2 M NEB (11:59)
[2019-12-20] MEDS ORDERED: Amphetamine Sa7.5 MG PO (11:59)
[2019-12-20] MEDS ORDERED: Duoneb 2.5-0.5 M3 ML NEB (12:00)
[2019-12-20] MEDS ORDERED: GABAPENTIN600 MG PO (12:01)
[2019-12-20] MEDS ORDERED: ALBU2.5V5 NEB (12:01)
[2019-12-20] MEDS ORDERED: MYRBETRIQ50 MG PO (12:02)
[2019-12-20] MEDS ORDERED: SIMV40 PO (12:02)
[2019-12-20] MEDS ORDERED: MORP30 PO (12:03)
[2019-12-20] MEDS ORDERED: ASPI81CH PO (12:04)
[2019-12-20 12:05] LABS: Bilirubin, Urine Neg (Neg); Blood, Urine Neg (Neg); Glucose Qualitative, Urine Neg (Neg); Ketones, Urine Neg (Neg); Leukocyte Esterase, Urine Neg (Neg); Nitrite, Urine Neg (Neg); Protein, Urine 1+ (Neg); Urobilinogen, Urine NORM (Normal)
[2019-12-20] MEDS ORDERED: AMIT75 PO (12:05)
[2019-12-20] MEDS ORDERED: ANORO ELLIPTA1 EACH INH (12:06)
[2019-12-20] MEDS ORDERED: FURO40 PO (12:06)
[2019-12-20 12:07] LABS: Appearance, Urine Clear (Clear); Color, Urine Yellow (P-Yellow)
[2019-12-20] MEDS ORDERED: POTCHL10ER PO (12:07)
[2019-12-20] MEDS ORDERED: Atarax10 MG PO (12:07)
[2019-12-20 12:16] LABS: U Amphetamine Screen DETECTED; U Methamphetamine Screen Not Detected
[2019-12-20 12:17] LABS: U Barbituate Screen Not Detected; U Benzodiazapine Screen Not Detected; U Cocaine Screen Not Detected; U Methadone Screen Not Detected; U Opiates Screen DETECTED
[2019-12-20 12:18] LABS: U Buprenorphine Screen Not Detected; U Cannabinoids Screen DETECTED; U Oxycodone Screen Not Detected; U Phencyclidine Screen Not Detected; U Propoxyphene Screen Not Detected
--- NOTE | 2019-12-20 15:50 | NUR ---
PATIENT REC'D IN ROOM 220 BY CN. ASSESSED AT THIS TIME BY THIS RN. PATIENT ANSWERS QUESTIONS APPROPRIATELY. STATES HE DOES NOT KNOW HOW HE FELL OUT OF BED THIS AM. C/O L LEG PAIN. L FOREFOOT WRAPPED IN GAUZE. PPP. LS CLEAR, DECREASED IN BASES. DENIES SOB OR ANY PAIN OTHER THAN L LEG. NO NAUSEA. VSS. CALL LIGHT IN REACH. BED ALARM ON.
--- NOTE | 2019-12-20 16:00 | NUR ---
REPORT GIVEN TO BIJAL CARMONA RN AT THIS TIME. DR ESCOTO PHOTOCOPYING MACHINE OPERATOR CALLED CN, STATES NO SURGERY, OK TO FEED PATIENT.
--- NOTE | 2019-12-20 17:24 | NUR ---
ORTHO CONSULT: DR ESCOTO IN TO SEE PATIENT. PT NON SURGICAL AT THIS TIME. IMMOBILIZER TO LEFT LEG. LEFT FOOT DRESSED AND WRAPPED. PAS PLACED TO RLE. PLACED ON TELE. MEDICATED FOR PAIN AFTER PAIN MED CHANGE.
--- NOTE | 2019-12-20 18:32 | NUR ---
PT HAS BEEN STABLE SINCE THIS RN ASSUMED CARE AT 1605. PT WAS REPORTING HIGH LEVELS OF PAIN. PAIN MED CHANGED AND PT RESTING MORE COMFORTABLY NOW. PT TOLERATING DIET. GOLDEN DRAINING WELL WITH GOOD OUTPUT. PT HAS IMMOBILIZER TO LLE. AWAITING PT/OT TO EVAL. PT HAD DRESSING TO LEFT FOOT, CDI. PAS TO RIGHT LEG. TELE AFIB WITH CONTROLLED HR. ECHO ORDERED. AM LABS TO REPEAT. PT USES CALL LIGHT APPROPRIATELY NEEDED.
[2019-12-21 06:07] LABS: BASOPHILS ABSOLUTE AUTO 0.08 K/mm3 (0.00-0.23); BASOPHILS PERCENT AUTO 1 % (0-2); EOSINOPHILS ABSOLUTE AUTO 0.14 K/mm3 (0.00-0.68); EOSINOPHILS PERCENT AUTO 1 % (0-6); Hematocrit 39.2 % (37.0-53.0); Hemoglobin 12.5 g/dL (13.5-17.5); IMMATURE GRAN ABSOLUTE AUTO 0.06 K/mm3 (0.00-0.10); IMMATURE GRAN PERCENT AUTO 0 % (0-1); LYMPHOCYTES ABSOLUTE AUTO 1.07 K/mm3 (0.84-5.20); LYMPHOCYTES PERCENT AUTO 7 % (21-46); MONOCYTES PERCENT AUTO 10 % (4-13); Mean Corpuscular HGB Conc 31.9 g/dL (31.5-36.5); Mean Corpuscular Volume 94 fL (80-100); Mean Platelet Volume 11.7 fL (9.1-12.4); NEUTROPHILS ABSOLUTE AUTO 12.76 K/mm3 (1.96-9.15); NEUTROPHILS PERCENT AUTO 82 % (41-73); Platelet Count 156 K/mm3 (150-400); RDW Coefficient Variation 13.9 % (11.7-14.2); RDW Standard Deviation 47.7 fL (35.1-46.3); Red Blood Cell Count 4.17 M/mm3 (4.30-5.90); White Blood Cell Count 15.61 K/mm3 (4.00-11.30)
--- NOTE | 2019-12-21 06:20 | NUR ---
PT VSS T/O NIGHT; HR AFLUTTER PER TELE MONITOR. PT DENIED CP/PRESSURE. LLE ELEVATED IN BED, IMMOBILIZER IN PLACE. PT REMAINS QUITE PAINFUL W/MVMT, REPOSITIONED YVES T/O NIGHT. PAIN MGD PER EMAR AND REPOSITIONING. GOLDEN PATANT, DRNG DARK YELLOW URINE. PLAN FOR PT/OT. WILL CONT TO MONITOR UNTIL REP GIVEN TO ONCOMING RN.
[2019-12-21 06:25] LABS: International Normalized Ratio 0.98; Prothrombin Time Results 10.5 Sec (9.7-11.5)
[2019-12-21 06:31] LABS: Alanine Aminotransfer (ALT/SGP 15 U/L (12-78); Albumin, Blood 3.1 g/dL (3.4-5.0); Albumin/Globulin Ratio 0.8 (0.8-1.8); Alk Phos 72 U/L (50-136); Anion Gap 6 mmol/L (6-16); Aspartate Aminotrans (AST/SGOT 25 U/L (12-37); Bilirubin, Total 0.7 mg/dL (0.1-1.0); Blood Urea Nitrogen 22 mg/dL (8-24); Bun/Creatinine Ratio 19.8 (12.0-20.0); CO2, Blood 29 mmol/L (21-32); Calcium, Blood 8.7 mg/dL (8.5-10.1); Chloride, Blood 103 mmol/L (98-108); Creatinine, Blood 1.11 mg/dL (0.60-1.20); Globulin, Blood 3.8 g/dL (2.2-4.0); Glomerular Filtration Rate >60 (60-); Glucose, Blood 109 mg/dL (70-99); Potassium, Blood 4.4 mmol/L (3.5-5.5); Sodium, Blood 138 mmol/L (136-145); Total Protein, Blood 6.9 g/dL (6.4-8.2)
--- NOTE | 2019-12-21 19:34 | NUR ---
SHIFT SUMMARY PATIENT STATES PAIN IMPROVED WITH FLEXERIL AND MSIR. DID NOT TOLERATE PT TODAY. TAKING PO. O2 @ 2L, C&DB ENCOURAGED. TAKING PO. ADEQUATE UO TO FC. CIRC CHECKS TO RLE WNL. DRESSING TO R FOREFOOT CDI. PLAN FOR SNF PLACEMENT.
--- NOTE | 2019-12-22 03:51 | NUR ---
SHIFT SUMMARY PT IS A/O X4. HAS BEEN BEDREST WITH IMMOBILIZER IN PLACE. REPOSITIONS SELF, AND HAS BEEN REPOSITIONED PRN. TOLERATING PO INTAKE. GOLDEN IN PLACE, PATENT, STAT LOCK IN PLACE. DRESSING TO L FOOT CDI. PAIN MANAGED WITH PO PAIN MEDS PER ORDERS. ASSISTED WITH ADL'S PRN.
[2019-12-22 05:23] LABS: BASOPHILS ABSOLUTE AUTO 0.07 K/mm3 (0.00-0.23); BASOPHILS PERCENT AUTO 0 % (0-2); EOSINOPHILS ABSOLUTE AUTO 0.24 K/mm3 (0.00-0.68); EOSINOPHILS PERCENT AUTO 2 % (0-6); Hematocrit 38.7 % (37.0-53.0); Hemoglobin 12.3 g/dL (13.5-17.5); IMMATURE GRAN ABSOLUTE AUTO 0.07 K/mm3 (0.00-0.10); IMMATURE GRAN PERCENT AUTO 0 % (0-1); LYMPHOCYTES ABSOLUTE AUTO 1.24 K/mm3 (0.84-5.20); LYMPHOCYTES PERCENT AUTO 8 % (21-46); MONOCYTES ABSOLUTE AUTO 1.83 K/mm3 (0.16-1.47); MONOCYTES PERCENT AUTO 11 % (4-13); Mean Corpuscular HGB 29.9 pg (26.0-34.0); Mean Corpuscular HGB Conc 31.8 g/dL (31.5-36.5); Mean Corpuscular Volume 94 fL (80-100); Mean Platelet Volume 11.7 fL (9.1-12.4); NEUTROPHILS ABSOLUTE AUTO 12.88 K/mm3 (1.96-9.15); NEUTROPHILS PERCENT AUTO 79 % (41-73); Platelet Count 150 K/mm3 (150-400); RDW Coefficient Variation 13.7 % (11.7-14.2); RDW Standard Deviation 47.4 fL (35.1-46.3); Red Blood Cell Count 4.11 M/mm3 (4.30-5.90); White Blood Cell Count 16.33 K/mm3 (4.00-11.30)
[2019-12-22 05:48] LABS: Anion Gap 6 mmol/L (6-16); Blood Urea Nitrogen 22 mg/dL (8-24); Bun/Creatinine Ratio 19.8 (12.0-20.0); CO2, Blood 31 mmol/L (21-32); Chloride, Blood 101 mmol/L (98-108); Creatinine, Blood 1.11 mg/dL (0.60-1.20); Glomerular Filtration Rate >60 (60-); Glucose, Blood 116 mg/dL (70-99); Sodium, Blood 138 mmol/L (136-145)
--- NOTE | 2019-12-22 13:13 | NUR ---
DR OLIVARES NOTIFIED OF PT'S 15 BEAT RUN OF SVT. REPORTS WILL PLACE ORDERS. DISCUSSED WITH PRODUCT LINE MANAGER.
--- NOTE | 2019-12-22 18:43 | NUR ---
SHIFT SUMMARY PT EATING AND DRINKING. PT GOLDEN DC'D TODAY PER DR OLIVARES, PT GIVEN URINAL TO VOID. PT USING CALL LIGHT. BED ALARM IN PLACE. PT REPOSITIONING SELF IN BED ASSISTED PRN. ENC MOBILITY. THERAPY IN TO SEE PT, DISCUSSED WITH THAT PT DID NOT TOLERATE THERAPY. PT DRESSING CONT TO BE C/D TO L FOOT. ENC BOWEL CARE WELL TODAY.
--- NOTE | 2019-12-23 02:00 | NUR ---
REPOSITIONING PT HAS BEEN OFFERED BED LINEN CHANGE THIS SHIFT BUT REFUSED D/T PAIN WITH MUCH MOVEMENT. RN AND CAN CONVEYOR FEEDER HAVE REPOSITIONED PT OFTEN AND MUCH HE CAN TOLERATE, HOWEVER HE IS VERY PAINFUL WITH MUCH MOVEMENT AND HAS NOT BEEN ABLE TO ROLL ON EITHER SIDE. PT STATES HE IS COMFORTABLE AT REST. PILLOWS HAVE BEEN USED TO HELP PT BE MORE COMFORTABLE.
--- NOTE | 2019-12-23 04:06 | NUR ---
SHIFT SUMMARY PT HAS BEEN A/O THIS SHIFT WITH VERY LITTLE CONFUSION. BED ALARM IN USE. PT HAS BEEN BEDREST HE IS VERY PAINFUL WITH MOVEMENT. PT HAS BEEN REPOSITIONED MUCH HE CAN TOLERATE. IMMOBILIZER HAS BEEN IN PLACE ON L LEG AND GAUZE DRESSING CDI TO L GREAT TOE. GOLDEN WAS DC'D ON DAY SHIFT ; PT WAS UNABLE TO VOID AND FOUND TO BE RETAINING. ENCOURAGED URINAL USE MULT TIMES BUT STILL NO VOID. PT WAS STRAIGHT CATH'D PER PROTOCOL FOR BLADDER SCAN VOLUME >300. WILL CONT. TO MONITOR. PT TOLERATING PO INTAKE. HAS BEEN ON 1L O2 NC THIS SHIFT. PT HAS BEEN ABLE TO GET REST DURING THE NIGHT. ASSISTED WITH ADL'S PRN.
--- NOTE | 2019-12-23 09:27 | NUR ---
DR ESCOTO HERE TO SEE PT, DISCUSSED PT'S STATUS. DR MCKEON WAS HERE EARLIER TODAY TO SEE PT.
--- NOTE | 2019-12-23 17:46 | NUR ---
SHIFT SUMMARY PT EATING AND DRINKING. PT RLE BEEN ELEVATED ON PILLOW. PAS TO LLE AND BED ALARM IN PLACE. PT REPOSITIONING SELF IN BED. MOBILITY BEEN ENCOURAGED. MEPILEX TO BOTTOM WAS PLACED WELL DRESSING TO L SIDE OF BACK OVER ABRASION. PT BEEN ASSISTED WITH ADL'S PRN. PT VOIDED TODAY AFTER HAVING MEDICATIONS.
--- NOTE | 2019-12-24 05:06 | NUR ---
SHIFT SUMMARY NO ACUTE CHANGES THIS SHIFT. IMMOBILIZER TO LLE IN PLACE, BRISK CAP REFILL TO EXTREM. GAUZE DRESSING TO LEFT TOES C.D.I. PAIN MANAGED WITH PO MEDICATION. TOLERATING REGULAR DIET, NO N/V. ABLE TO USE URINAL IND, VOIDED X1. APPEARS TO HAVE RESTED T/O MOST OF SHIFT. REPOSTIONED TOLERATED. PLAN TO WORK WITH PT/OT TODAY. IS CURRENTLY RESTING IN BED WITH CALL LIGHT IN REACH. WILL CONT TO MONITOR AND GIVE REPORT TO ONCOMING RN.
--- NOTE | 2019-12-24 15:27 | NUR ---
Jarad is well known to me from previous hospitalizations. We spoke at length about his many life changes and losses. I provided gentle bereavement juvenile counselor to good effect. Jarad is Confucianism, but has a beleif in a "higher power" and after-life. He is hoping to be placed near his life-long friends in the [place] area. We have an easy rapport and he responded well to companionship and juvenile counselor. I will remain available.
--- NOTE | 2019-12-24 18:11 | NUR ---
DISCHARGE: REPORT GIVEN TO RAJWINDER PARSONS RN. WOUND AT PT L GREAT TOE CLEANSED AND RE-DRESSED WITH GUAZE AND KISHORE WRAP. BOOT APPLIED PER ORDER. TRANSPORT HERE AT ABOUT 1700. LEFT UNIT VIA [employer] WITH TRANSPORT, TRANSPORT GIVEN PACKET WITH [facility].
--- NOTE | 2019-12-24 19:29 | NUR ---
CALL FROM RN AT [facility], PT SCRIPT FOR MORPHINE MISPLACED. CALL MADE TO HOSPITALIST ROXI FOR NEW SCRIPT. NEW SCRIPT FOR PT FAXED TO [facility] AT 1845, VERIFED WITH STAFF THAT FAX WAS RECEIVED.
== END 2019-12-24 17:10 | DRG 534 ==
LOC: ER 07:55 → SURS 12:22
PROVIDERS: Internal Medicine; Nurse Practitioner Acute Care; Physician Assistant; ADMIT Hospitalist
DX: S72.402A Unspecified fracture of lower end of left femur, initial encounter for closed fracture (principal); I48.20 Chronic atrial fibrillation, unspecified; I50.32 Chronic diastolic (congestive) heart failure; W19.XXXA Unspecified fall, initial encounter; S92.402A Displaced unspecified fracture of left great toe, initial encounter for closed fracture; R33.9 Retention of urine, unspecified; I35.0 Nonrheumatic aortic (valve) stenosis; R55 Syncope and collapse; I25.10 Atherosclerotic heart disease of native coronary artery without angina pectoris; F17.210 Nicotine dependence, cigarettes, uncomplicated; E78.5 Hyperlipidemia, unspecified; Z99.81 Dependence on supplemental oxygen; I11.0 Hypertensive heart disease with heart failure
CPT/HCPCS: 36415; 51702; 71046; 73552; 73564; 73630; 80048; 80053; 83735; 84484; 85025; 85610; 93005; 93010; 93306; 94640; 94760; 96365; 96375; 96376; 97110; 97162; 97166; 97530; 99284-25; A9270; A9270-GY; J0690; J1170; J1650; J1940; J2405; J3010